=== PATIENT | female | born 2000 ===

== ENCOUNTER 2020-01-06 20:26 | Emergency (ER) | payer OTHER ==
[~2020-01-06] VITALS: Ht 157 cm; Wt 107.4 kg
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
[2020-01-06] MEDS ORDERED: RX-CYCLOBENZAPRINE 10 MG (FLEXERIL) TAB PPK#3 PO STA (22:04)
[2020-01-06 22:21] VITALS: BP 134/92
== END 2020-01-06 22:21 | disposition home or self-care (01) ==
LOC: ER 20:28
DX: S16.1XXA Strain of muscle, fascia and tendon at neck level, initial encounter (principal); V49.50XA Passenger injured in collision with unspecified motor vehicles in traffic accident, initial encounter
CPT/HCPCS: 72040; 73030